=== PATIENT | male | born 1995 | race Caucasian/White ===

== ENCOUNTER 2020-01-05 11:40 | Emergency (ER) | payer BC ==
--- OUTSIDE RECORDS SUMMARY | 2020-01-05 11:59 | XMS REPORT | Continuity of Care Document ---
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 Medicine Problems Description No Information Available Social History Type Date Description Comments Sex Unknown ETOH Use Currently consumes daily alcohol Tobacco Use Start: Unknown End: Patient is a former pt currently dips Unknown smoker Smoking Status Reviewed: 11/15/19 Patient is a former pt currently dips smoker Exercise Lifts weights daily Type/Frequency Allergies, Adverse Reactions, Alerts Active Allergies Reaction Severity Comments Date Doxycycline GI Upset 11/14/2019 Inactive Allergies NKDA 03/19/2018 Medications Description No Active Medications Immunizations Description No Information Available Vital Signs Date Vital Result Comment 11/15/2019 8:55am Height 71 inches 5'11" Weight 200.00 lb Heart Rate 84 /min BP Systolic Sitting 120 mmHg BP Diastolic Sitting 82 mmHg Respiratory Rate 16 /min Body Temperature 97.6 F BMI (Body Mass Index) 27.9 kg/m2 03/26/2018 12:02pm Heart Rate 62 /min Respiratory Rate 16 /min Body Temperature 98.6 F Results Description No Information Available Procedures Date Code Description Status 11/15/2019 46288 Anoscopy Completed Medical Devices Description No Information Available Encounters Description No Information Available Assessments Date Code Description Provider 11/15/2019 K59.4 Anal spasm Brian [place] MD Plan of Treatment 11/15/2019 - Brian [place] MDK59.4 Anal spasmFollow up:None needed Please call if symptoms worsen Functional Status Description No Information Available Mental Status Description No Information Available Referrals Description No Information Available
--- OUTSIDE RECORDS SUMMARY | 2020-01-05 11:59 | XMS REPORT | Continuity of Care Document ---
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 Medicine Problems Description No Information Available Social History Type Date Description Comments Sex Unknown Tobacco Use Start: Unknown Nonsmoker Smokeless Tobacco Current Smokeless Tobacco ETOH Use Consumes 1 six pack of beer per day Recreational Drug Use Denies Drug Use Tobacco Use Start: Unknown Nonsmoker Smoking Status Reviewed: 11/03/19 Nonsmoker Allergies, Adverse Reactions, Alerts Active Allergies Reaction Severity Comments Date Doxycycline Nausea, vomiting 04/05/2019 Inactive Allergies Nka 04/11/1998 Medications Active Medications SIG Qnty Indications Ordering Provider Date No Active Medications Unknown 11/03/2019 History Medications Azithromycin 2 take by mouth 6tabs R05 Betzy 07/09/2019 - 250mg tablets today,then 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 M.DGabreila 06/08/2019 100mg Capsules Medications Administered in Office Medication SIG Qnty Indications Ordering Provider Date TB Intradermal Test Rakan Pearson M.D. 10/01/2009 Injection Immunizations CPT Code Status Date Vaccine Lot # [id number] Given 03/27/2007 Tetanus And Diptheria Adult Preservative Free >7Yrs 24555 Given 05/11/2000 IPV Inactive Poliovirus Vaccine 64594 Given 05/11/2000 MMR Virus Immunization 16567 Given 05/11/2000 DTaP Immunization 32917 Given 04/14/1996 DTaP & Hib Immunization 89400 Given 04/14/1996 Varicella (Chicken Pox) Immunization 18224 Given 04/14/1996 IPV Inactive Poliovirus Vaccine 00568 Given 01/14/1996 MMR Virus Immunization 46419 Given 01/14/1996 (Hib) Hemoplilus Influenza B 34727 Given 04/15/1995 DTP & Hib Immunization 07435 Given 04/15/1995 Hepatitis B Immunization, [place]-19 Years 35031 Given 03/28/1995 (Hib) Hemoplilus Influenza B 50279 Given 02/12/1995 IPV Inactive Poliovirus Vaccine 55487 Given 01/26/1995 DTP Immunization 23396 Given 01/26/1995 (Hib) Hemoplilus Influenza B 25702 Given 1994 Hepatitis B Immunization, -19 Years 79702 Given 1994 IPV Inactive Poliovirus Vaccine 52450 Given 1994 DTP Immunization 39899 Given 1994 (Hib) Hemoplilus Influenza B 43115 Given 1994 Hepatitis B Immunization, [place]-19 Years Vital Signs Date Vital Result Comment 11/03/2019 5:31pm BP Systolic 118 mmHg BP Diastolic 80 mmHg Heart Rate 76 /min Body Temperature 99.2 F Respiratory Rate 16 /min Height 71 inches 5'11" Weight 204.00 lb BMI (Body Mass Index) 28.4 kg/m2 07/09/2019 9:50am BP Systolic 130 mmHg BP Diastolic 78 mmHg Heart Rate 88 /min Body Temperature 98.4 F Respiratory Rate 16 /min Height 69 inches 5'9" Weight 193.00 lb BMI (Body Mass Index) 28.5 kg/m2 Results Test Acquired Date Facility Test Result H/L Range Note Comprehensive 11/10/2019 [facility] Sodium 138 mEq/L 134-149 Metabolic Prof Potassium 3.7 mEq/L 3.6-5.5 Chloride 100 mEq/L 94-112 Carbon Dioxide 25 mEq/L 21-32 Glucose 112 mg/dL High 70-105 BUN 12 mg/dL 6-26 Creatinine 1.1 mg/dL 0.6-1.4 BUN/Creat Ratio 10.9 CALC 8.0-36.0 Calcium 10.5 mg/dL 8.9-10.6 Total Protein 8.2 g/dL 6.4-8.3 Albumin 5.4 g/dL 3.8-5.5 Globulin 2.8 g/dL 2.0-4.8 A/G Ratio 1.9 CALC 0.6-2.3 Alk. Phosphatase 78 U/L 22-95 Alt (SGPT) 45 U/L High 7-35 Ast (Sgot) 34 U/L 5-34 Total Bilirubin 0.7 mg/dL 0.2-1.3 GFR Non- >60 ml/min/1.73m^ >=60 GFR >60 ml/min/1.73m^ >=60 Lipid Profile 11/10/2019 [facility]) Cholesterol 232 mg/dL High 120-200 Triglycerides 412 mg/dL High 30-200 HDL Cholesterol 60 mg/dL 30-70 LDL (Calculated) 90 CALC 0-129 VLDL Cholesterol 82 mg/dL High 0-50 HDL Risk Factor 3.9 CALC 0.0-4.4 Laboratory test 11/10/2019 [facility]) LDL, Direct 101 mg/dL 0- 130 finding Laboratory test 11/10/2019 [facility] HCV AB ([facility]) neg negative finding (607)- - HIV 1&2 Antibody Screen ([facility]) neg Negative CBC Electronic ([facility] New) 11/10/2019 [facility] WBC 7.33 4.0-10.0 (607)- - RBC 5.16 3.93-6.0 Hemoglobin ([facility]/CMC/CTX) 15.7 g/dL 12.0-17.0 Hematocrit ([facility]ma/CMC/CTX) 44.4 % 35.0-50.0 Mean Corpuscular Vol 86.0 fL 80-95 Mean Corpuscular Hemoglobin 30.4 pg 25.6-32.2 Mean Corpuscular Hemo Concen 35.4 g/dL 32.2-36.0 Platelets 211 10^3/ul 163-400 RDW-CV 11.7 11.6-14.4 Mean Platelet Volume 9.7 fL 8.0-12.4 Absolute Neutrophils BLD 3.52 1.56-6.13 Absolute Lymphocytes 2.93 1.18-3.74 Absolute Monocytes BLD Auto 0.62 0.24-0.82 Absolute Eos Blood 0.19 0.04-0.54 Absolute Basophils 0.04 0.01-0.08 Neutrophil % 48.0 % 34.0-70.0 Lymph% 40.0 % 20.0-52.0 Monocytes % 8.5 % 5.0-12.0 Eos % 2.6 % 0.7-7.0 Basophil% 0.5 % 0-1.2 Chlamydia/GC 11/10/2019 [facility] Chlamydia Negative Negative 1, 2 Amplification [address] [facility] trachomatis, [place] [address] (605)- - Neisseria gonorrhoeae, Khushi Negative Negative 3 HSV 1 And 2 11/10/2019 [facility] HSV 1 IgG, <0.91 index 0.00-0.90 4 -Spec AB, Igg [address] [place] [address] Type Spec W/[place] [address] (408)- - HSV 2 IgG, Type Spec <0.91 index 0.00-0.90 5 Laboratory test 11/10/2019 [facility] RPR Non Reactive Non Reactive finding [address] [place] [phone] (600)- - Laboratory test 06/08/2019 [facility] C-Reactive <1 mg/L 0-[address] [place] [address] Protein, [place] [address] Quant (605)- - Antinuclear Antibodies, Ifa Negative 7 Rheumatoid 06/08/2019 [facility] Ra Latex Turbid. <10.0 IU/mL 0.0-13.9 Arthritis Factor [address] [place] [address] ([facility]) [place] [address] (603)- - Laboratory test 06/08/2019 [facility] Hla B 27 Disease Negative [address] [place] [address] [place] [address] (608)- - 1 SRC:urine 2 sst 2 Source of Specimen: urine 2 sst 3 Source of Specimen: urine 2 sst 4 Negative <0.91 Equivocal 0.91 - 1.09 Positive >1.09 Note: Negative indicates no antibodies detected to HSV-1. Equivocal may suggest early infection. If clinically appropriate, retest at later date. Positive indicates antibodies detected to HSV-1. 5 Negative <0.91 Equivocal 0.91 - 1.09 Positive >1.09 Note: Negative indicates no antibodies detected to HSV-2. Equivocal may suggest early infection. If clinically appropriate, retest at later date. Positive indicates antibodies detected to HSV-2. 6 2 SSTs 1 Lav Top Whole Blo od 7 Negative <1:80 Borderline 1:80 Positive >1:80 8 HLA-B*27 Negative B27 allele interpretation for all loci based on IMGT/HLA database version 3.35 This test was developed and its performance characteristics determined by [facility]. It has not been cleared or approved by the Food and Drug Administration. [facility] CLIA ID Number [id number] This test was performed using PCR (Polymerase Chain Reaction)/SSOP (Sequence Specific Oligonucleotide Probes) technique. SBT (Sequence Based Typing) and/or SSP (Sequence Specific Primers) may be used as supplemental methods when necessary. Please contact [facility] Customer Service at if you have any questions. Director of [facility] Dr Jack Riley, PhD Procedures Description No Information Available Medical Devices Description No Information Available Encounters Type Date Location Provider Dx Diagnosis Office Visit 11/03/2019 Main Office AUDELIA Santiago Z00.00 Encntr for general 5:30p adult medical exam w/o abnormal findings Z11.4 Encounter for screening for human immunodeficiency virus K60.4 Rectal fistula R05 Cough Z20.2 Contact w and exposure to infect w a sexl mode of transmiss E78.1 Pure hyperglyceridemia Office Visit 07/09/2019 10:00a [facility] Office AMELIA Arreaga R05 Cough K12.30 Oral mucositis (ulcerative), unspecified H60.8x2 Other otitis externa, left ear Office Visit 06/08/2019 2:20p Main Office Otilio Henderson M25.50 Pain in MD Darek unspecified joint Assessments Date Code Description Provider 11/10/2019 Z11.4 Encounter for screening for human AUDELIA Santiago immunodeficiency virus [HIV] 11/10/2019 Z00.00 Encounter for general adult medical AUDELIA Santiago examination without abnormal findings 11/10/2019 Z11.59 Encounter for screening for other viral AUDELIA Santiago diseases 11/10/2019 E78.1 Pure hyperglyceridemia AUDELIA Santiago 11/03/2019 Z00.00 Encounter for general adult medical AUDELIA Santiago examination without abnormal findings 11/03/2019 Z11.4 Encounter for screening for human AUDELIA Santiago immunodeficiency virus [HIV] 11/03/2019 K60.4 Rectal fistula AUDELIA Santiago 11/03/2019 R05 Cough AUDELIA Santiago 11/03/2019 Z20.2 Contact with and (suspected) exposure to AUDELIA Santiago infections with a predominantly sexual mode of transmission 11/03/2019 E78.1 Pure hyperglyceridemia AUDELIA Santiago 07/09/2019 R05 Cough Betzy Cohen, [facility] 07/09/2019 K12.30 Oral mucositis (ulcerative), unspecified Betzy Cohen , [facility] 07/09/2019 H60.8x2 Other otitis externa, left ear Betzy Cohen, [facility] 06/08/2019 M25.50 Pain in unspecified joint Otilio Oswald MD Plan of Treatment 11/03/2019 - Carisa Beatty, PAZ00.00 Encounter for general adult medical examination without abnormal findingsComments:Encourage fruits, vegetables. More water , less alcohol, give your body a break at times. 2 drinks recommended daily for menZ11.4 Encounter for screening for human immunodeficiency virus [HIV]Comments:Return for lab check of STDsK60.4 Rectal fistulaComments:See Dr. Peoples, general surgeon, our office will make a referral but you can also call Address: [address] [place] [id number]: r05 CoughComments:Benedryl at night , or Claritin, Zyrtec, Latasha are other options More water Wear Mask at work Return if symptoms worsen or don't bklcrslG16.2 Contact with and (suspected) exposure to infections with a predominantly sexual mode of sutqxafrernbZ83.1 Pure hyperglyceridemiaAllNew Medication:No Active Medications -Comments: PCMHMedication Management Patient Understands medications he's taking? Yes Are there Barriers to Adherence? No Has the patient been asked about herbal supplements and therapies, and OTC meds? Yes Care Plan1. Patient has been queried about patient's goals/preferences and functional/ lifestyle goals at relevant visits. Yes If relevant, describe: N/A2. Treatment goals as explained to the patient: above3. Are there barriers to meeting treatment goals? No If Yes, please describe:4. Self-Management goals as described to the patient: Yes As always, we strongly encourage a healthy diet and making physical activity a part of your every day life. If you have questions about how or where to start, please contact the office. Functional Status Description No Information Available Mental Status Description No Information Available Referrals Refer to Reason for Referral Status Appt Date Brian [place] recurrent anal fistula jw Scheduled 11/10/2019 [address], [address] [place], [place] [id number] [phone]
--- NOTE | 2020-01-05 12:07 | ED ---
Substance Abuse/Use - HPI Summary HPI Summary: Patient is a 24 y/o M presenting to the ED for a chief complaint of detox request. Patient states he has been using cocaine nasally, smoking marijuana, and drinking alcohol for the last 3 days. Last cocaine use was the morning of . Last alcohol use was at 04:00 on 01/05/20. He admits heavy alcohol use of 12 beers daily for years. In the past, he has received inpatient treatment for substance abuse. Currently, he reports chest pain and nausea. Patient denies fever, cough, vomiting, abdominal pain, or SI. He believes he is in withdrawal from alcohol. No aggravating or alleviating factors are reported. Any significant PMHx is denied, including DM or HTN. - History Of Current Complaint Chief Complaint: EDDetoxRequest Stated Complaint: GENERAL PER PT Time Seen by Provider: 01/05/20 12:02 Hx Obtained From: Patient Onset/Duration of Drug/ETOH Abuse: Years Ingestion History: Type/Name Of Drug - Marijuana, cocaine Overdose Characteristics: Oral, Inhalation Timing Of Abuse: Daily, Binge Use Severity Initially: Moderate Severity Currently: Moderate Aggravating Factor(s): Nothing Alleviating Factor(s): Nothing Associated Signs And Symptoms: Chest Pain, Nausea, Intentional Ingestion Related Hx: Drug/Alcohol Last Used @ - 01/05/20, Prior Drug Abuse Counseling/ Admission - Allergies/Home Medications Allergies/Adverse Reactions: Allergies Allergy/AdvReac Type Severity Reaction Status Date / Time doxycycline Allergy GI Upset Verified 01/05/20 11:47 Home Medications: Home Medications Acetaminophen [Acetaminophen Extra Strength] 1,000 mg PO Q6H PRN 03/18/18 [ History Confirmed 03/18/18] Amoxicillin/Clavulanate TAB* [Augmentin TAB 875*] 875 mg PO BID #19 tab [Rx] HYDROcodone/ACETAMIN 5-325 MG* [[place] 5-325 TAB*] 1 tab PO Q4H PRN #20 tab MDD 6 03/18/18 [Rx] PMH/Surg Hx/FS Hx/Imm Hx Previously Healthy: Yes Endocrine/Hematology History: Denies: Hx Diabetes Cardiovascular History: Denies: Hx Hypertension GI History: Reports: Other GI Disorders - Hemorrhoids Musculoskeletal History: Reports: Other Musculoskeletal History - Knee sprain Sensory History: Denies: Hx Legally Blind, Hx Deafness Opthamlomology History: Denies: Hx Legally Blind EENT History: Denies: Hx Deafness Psychiatric History: Reports: Hx Substance Abuse - Cocaine, alcohol, marijuana - Surgical History Surgical History: None Surgery Procedure, Year, and Place: None Infectious Disease History: No Infectious Disease History: Denies: Traveled Outside the [place] in Last 30 Days - Family History Known Family History: Positive: Unknown - Adopted - Social History Occupation: Employed Full-time Lives: With Family Alcohol Use: Daily Alcohol Amount: 12 beers daily Hx Substance Use: Yes Substance Use Type: Reports: Cocaine, Marijuana Substance Use Comment - Amount & Last Used: occasional Hx Tobacco Use: Yes Smoking Status (MU): Current Some Day Smoker Review of Systems Negative: Fever Positive: Chest Pain Negative: Cough Positive: Nausea. Negative: Abdominal Pain, Vomiting Negative: Other - Negative SI All Other Systems Reviewed And Are Negative: Yes Physical Exam - Summary Physical Exam Summary: Constitutional: Well-developed, Well-nourished, Alert. (-) Distressed Skin: Warm, Dry HENT: Normocephalic; Atraumatic Eyes: Conjunctiva normal Neck: Musculoskeletal ROM normal neck. (-) JVD, (-) Stridor, (-) Tracheal deviation Cardio: Rhythm regular, rate normal, Heart sounds normal; Intact distal pulses; The pedal pulses are 2+ and symmetric. Radial pulses are 2+ and symmetric. (-) Murmur Pulmonary/Chest wall: Effort normal. (-) Respiratory distress, (-) Wheezes, (-) Rales Abd: Soft, (-) tenderness, (-) Distension, (-) Guarding, (-) Rebound Musculoskeletal: (-) Edema Lymph: (-) Cervical adenopathy Neuro: Alert, Oriented x3 Psych: Mood and affect Normal Triage Information Reviewed: Yes Vital Signs On Initial Exam: Initial Vitals Temp Pulse Resp BP Pulse Ox 97.5 F 99 18 135/90 99 01/05/20 11:42 01/05/20 11:42 01/05/20 11:42 01/05/20 11:42 01/05/20 11:42 Vital Signs Reviewed: Yes Procedures - Sedation Patient Received Moderate/Deep Sedation with Procedure: No Diagnostics - Vital Signs Vital Signs Temp Pulse Resp BP Pulse Ox 01/05/20 11:42 97.5 F 99 18 135/90 99 - Laboratory Result Diagrams: 01/05/20 12:34 01/05/20 12:34 Lab Statement: Any lab studies that have been ordered have been reviewed, and results considered in the medical decision making process. - EKG 12:25 Cardiac Rate: NL - 88 BPM EKG Rhythm: Sinus Rhythm ST Segment: Normal Ectopy: None Summary of EKG Findings: EKG at 12:25 shows normal sinus rhythm with 88 BPM, no ischemic changes. Dr. Hameed has reviewed and interpreted this EKG. Course/Dx - Course Course Of Treatment: Patient is a 24 y/o M presenting to the ED for a chief complaint of detox request. Patient states he has been using cocaine nasally, smoking marijuana, and drinking alcohol for the last 3 days. Last cocaine use was the morning of 01/05/20. Last alcohol use was at 04:00 on 01/05/20. He admits heavy alcohol use of 12 beers daily for years. In the past, he has received inpatient treatment for substance abuse. Currently, he reports chest pain and nausea. Patient denies fever, cough, vomiting, abdominal pain, or SI. He believes he is in withdrawal from alcohol. Any significant PMHx is denied, including DM or HTN. On exam, unremarkable findings. EKG at 12:25 shows normal sinus rhythm with 88 BPM, no ischemic changes. Laboratory abnormal findings: serum alcohol 29. All other abnormal lab results are not pertinent to current cc. Patient will be discharged with a diagnosis of polysubstance abuse. He was given outpatient resources for substance abuse. Follow up with PCP in 2-3 days. - Diagnoses Provider Diagnoses: Polysubstance abuse Discharge ED - Sign-Out/Discharge Documenting (check all that apply): Patient Departure - Discharge - Discharge Plan Condition: Stable Disposition: HOME Patient Education Materials: Polysubstance Abuse (ED) Referrals: [facility] [Outside] Additional Instructions: RETURN TO THE EMERGENCY DEPARTMENT FOR CHANGING OR WORSENING SYMPTOMS. Follow up with your primary care physician in 2-3 days. - Billing Disposition and Condition Condition: STABLE Disposition: Home - Attestation Statements Document Initiated by Scribe: Yes Documenting Scribe: Berna Callahan Provider For Whom Scribe is Documenting (Include Credential): Feliberto Hameed, Scribe Attestation: Berna Bar scribed for Feliberto Hameed DO on 01/05/20 at 1526. Scribe Documentation Reviewed: Yes Provider Attestation: The documentation as recorded by the scribe, Berna Callahan accurately reflects the service I personally performed and the decisions made by me, Feliberto Hameed DO Status of Scribe Document: Viewed
[2020-01-05 12:44] LABS: ABS Monocytes 0.6 10^3/ul (0-0.8); ABS Neutrophils 5.9 10^3/ul (1.5-7.7); Eosinophil % 0.5 %; Hematocrit 45 % (42-52); Hemoglobin 15.6 g/dL (14.0-18.0); Lymphocyte % 13.3 %; Mean Corpuscular HGB Conc 35 g/dL (31-36); Mean Corpuscular Hemoglobin 32 pg (27-31); Mean Corpuscular Volume 91 fL (80-94); Mean Platelet Volume 7.9 fL (7.4-10.4); Nucleated Red Blood Cells % 0.3; Platelet Count 250 10^3/uL (150-450); Red Blood Count 4.94 10^6 /uL (4.18-5.48); Red Cell Distribution Width 13 % (10-15); White Blood Count 7.6 10^3/uL (3.5-10.8)
[2020-01-05 13:08] LABS: Troponin I 0.01 ng/mL (<0.03)
[2020-01-05 13:12] LABS: Albumin 4.6 g/dL (3.2-5.2); Albumin/Globulin Ratio 1.7 (1-3); BUN/Creatinine Ratio 14.4 (8-20); Calcium 9.8 mg/dL (8.6-10.3); EGFR African American 105.3 (>60); Globulin 2.7 g/dL (2-4); Potassium 4.1 mmol/L (3.5-5.0); Total Bilirubin 1.3 mg/dL (0.2-1.0); Total Protein 7.3 g/dL (6.4-8.9)
[2020-01-05 13:41] LABS: HIV 4th Generation Nonreactive (Nonreactive)
[2020-01-05 14:21] VITALS: BP 138/84
== END 2020-01-05 14:20 | disposition home or self-care (01) ==
LOC: ED 11:40
DX: F19.10 Other psychoactive substance abuse, uncomplicated (principal); R07.9 Chest pain, unspecified; Z79.899 Other long term (current) drug therapy; R94.31 Abnormal electrocardiogram [ECG] [EKG]
CPT/HCPCS: 36415; 80053; 80320; 84484; 85025; 87389; 93005; 99283; G0480

== ENCOUNTER 2024-05-24 17:09 | Inpatient (IN) ==
[2024-05-24] MEDS: Lactated Ringers 1000 ml BAG 1,000 ML IV ONE ×2 (17:30→17:31)
[2024-05-24 17:41] LABS: ABS Basophils 0.1 10^3/uL (0.0-0.1); ABS Eosinophils 0.1 10^3/uL (0.0-0.5); ABS Lymphocytes 2.5 10^3/uL (1.0-4.8); ABS Monocytes 1.1 10^3/uL (0.0-1.1); ABS Neutrophils 7.6 10^3/uL (1.5-7.6); ABS Nucleated RBC 0.01 10^3/ul; Hematocrit 48.4 % (38-53); Hemoglobin 16.8 g/dL (13.2-16.3); Mean Corpuscular Hemoglobin 32.4 pg (27-33); Mean Corpuscular Hgb Conc 34.6 g/dL (31-36); Mean Corpuscular Volume 93.4 fL (80-97); Mean Platelet Volume 8.2 fL (7.5-11.2); Nucleated Red Blood Cells % 0.1 %/100WBC (0.0-0.8); Platelet Count 262 10^3/uL (150-450); Red Blood Count 5.19 10^6/uL (4.06-5.63); Red Cell Distribution Width 12.2 % (12-17); White Blood Count 11.4 10^3/uL (3.6-10.2)
[2024-05-24] MEDS: Ondansetron 4 mg VIAL 2 MG/ML 2 ml VIAL IV ONE (17:49)
[2024-05-24] MEDS ORDERED: Lorazepam PYXIS KEY PRN (17:58)
[2024-05-24 18:08] LABS: Albumin/Globulin Ratio 1.7 (1-3); Calcium 12.6 mg/dL (8.6-10.3); Creatinine, Serum 1.59 mg/dL (0.67-1.17); Globulin 3.6 g/dL (2-4); Potassium 3.9 mmol/L (3.5-5.0); Total Bilirubin 1.7 mg/dL (0.2-1.0); Total Protein 9.6 g/dL (6.4-8.9); eGFR CKD-EPI 59.9 (>60)
[2024-05-24] MEDS: LORazepam 2 mg VIAL 1 ml IV PUSH ONE (18:21)
[2024-05-24] MEDS: Magnesium Sulfate 2 gm BAG 2 GM/50 ML BAG IVPB ONE (18:24)
[2024-05-24 18:56] LABS: INR 1.11 (0.85-1.14)
[2024-05-24 19:14] LABS: High Sensitivity Troponin 1 Hr 5 pg/mL (<20)
[2024-05-24] MEDS ORDERED: Thiamine 100 MG/ML 2 ml VIAL (200 mg) IV ONE (19:36)
[2024-05-24] MEDS: Thiamine IV 100 MG in NS 0.9% 50 ML IV ONE (20:21)
[2024-05-24] MEDS: Thiamine 100 MG/ML 2 ml VIAL (200 mg) IM ONE (20:27)
[2024-05-24 22:26] LABS: Urine Appearance Clear; Urine Bilirubin Negative (Negative); Urine Blood Negative (Negative); Urine Color Light-Yellow; Urine Glucose Negative (Negative); Urine Ketones Trace (Negative); Urine Nitrite Negative (Negative); Urine Protein Negative (Negative); Urine Specific Gravity 1.013 (1.002-1.030); Urine Urobilinogen Negative (Negative); Urine pH 5.5 (5.0-8.0)
[2024-05-24] MEDS: Enoxaparin 40 MG/0.4 ML SYR SUBCUT SCH (23:34)
[2024-05-25] MEDS: Lactated Ringers 1000 ml BAG 1,000 ML IV SCH (03:31)
[2024-05-25 04:05] LABS: Calcium 9.9 mg/dL (8.6-10.3); Creatinine, Serum 0.97 mg/dL (0.67-1.17); Potassium 3.6 mmol/L (3.5-5.0); eGFR CKD-EPI 108.4 (>60)
[2024-05-25 06:02] LABS: ABS Basophils 0.1 10^3/uL (0.0-0.1); ABS Eosinophils 0.2 10^3/uL (0.0-0.5); ABS Lymphocytes 1.5 10^3/uL (1.0-4.8); ABS Monocytes 0.7 10^3/uL (0.0-1.1); ABS Neutrophils 3.8 10^3/uL (1.5-7.6); ABS Nucleated RBC 0.01 10^3/ul; Eosinophil % 3.5 %; Hematocrit 42.5 % (38-53); Hemoglobin 14.8 g/dL (13.2-16.3); Lymphocyte % 23.7 %; Mean Corpuscular Hemoglobin 32.6 pg (27-33); Mean Corpuscular Hgb Conc 34.8 g/dL (31-36); Mean Corpuscular Volume 93.6 fL (80-97); Mean Platelet Volume 8.4 fL (7.5-11.2); Nucleated Red Blood Cells % 0.1 %/100WBC (0.0-0.8); Platelet Count 181 10^3/uL (150-450); Red Blood Count 4.53 10^6/uL (4.06-5.63); Red Cell Distribution Width 12.6 % (12-17); White Blood Count 6.3 10^3/uL (3.6-10.2)
[2024-05-25] MEDS ORDERED: Multivitamins/Minerals TAB PO SCH (09:00)
[2024-05-25 10:49] VITALS: BP 141/92
== END 2024-05-25 10:49 | disposition home or self-care (01) | DRG 897 ==
LOC: ED 17:09 → EDHOLD 22:00 → SUATTDRO 22:00 → MED 05-25 09:05 → EDHOLD 05-25 09:57
PROVIDERS: ADMIT Internal Medicine; ATTEND Internal Medicine